=== PATIENT | female | born 1965 | race Caucasian/White ===

== ENCOUNTER 2023-09-11 04:16 | Emergency (ER) | payer OTHER, SELFPAY ==
[2023-09-11 04:24] VITALS: BP 144/71; PULSE 64; RESP 16; TEMP 36.8; O2SAT 100; BMI 38.7
--- NOTE | 2023-09-11 04:39 | XR_ITS ---
Patient: BONNIE HENDRIX Facility:?[facility] Patient ID:?[id number] Site Patient ID:?[id number]. Site :?[id number] Study:?XRay-Abdomen 2 VIEW-09/11/2023 4:54:29 AM Ordering Physician:AMIE Final Report: Indication: constipation Technique: Abdomen 3 view. Comparison: None. Findings: Bowel: Bowel pattern is normal. Mild-moderate stool burden throughout the colon. Other: No sign of free air. No suspicious calcifications. Osseous structures are unremarkable for age. Impression: Mild-moderate stool burden throughout the colon. Dictated by Artemio Menard MD @ 09/11/2023 5:53:07 AM Signed by:?Artemio Menard MD @09/11/2023 5:53:07 AM (Electronic Signature)
--- NOTE | 2023-09-11 04:44 | PC.NURSE ---
Pt to radiology.
[2023-09-11] MEDS: DOCUSATE SODIUM/BENZOCAINE 5 ML ENEMA PR (05:32)
--- NOTE | 2023-09-11 05:46 | PC.NURSE ---
Pt in restroom, put call light on. States she was able to go a little bit but still have a lot of cramping. Pt states she was able to pass a lot of gas. Pt. 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 Requesting another suppository/enema.
--- NOTE | 2023-09-11 06:13 | ED.ABDPAIN ---
HPI - Abdominal Pain General Date Seen: 09/11/23 Chief Complaint: Abdominal Pain Stated Complaint: abdominal pain Time Seen by Provider: 09/11/23 04:38 Source: patient Mode of arrival: ambulatory Limitations: no limitations History of Present Illness HPI narrative: Patient is a 58-year-old female who was seen by her PCP two days ago with abdominal pain. She was diagnosed with constipation and told to start MiraLax b.i.d.. She is on some medications that are constipating but she has never had a lot of difficulty with her bowels. No testing or imaging was done in the clinic. She has been taking MiraLax b.i.d. and had a small bowel movement on Thursday and no bowel movement yesterday. She has been up the entire night with abdominal cramping that comes in waves. No history of black or bloody stools. Related Data Home Medications Medication Instructions Recorded Confirmed fluticasone fur. 200 mcg-umeclid 1 ea inhalation DAILY 09/11/23 09/11/23 62.5 mcg-vilant 25 mcg inhalat.powder (Trelegy Ellipta) levothyroxine 50 mcg tablet 50 mcg PO DAILY 09/11/23 09/11/23 montelukast 10 mg tablet 10 mg PO QPM 09/11/23 09/11/23 olanzapine 10 mg-samidorphan 10 mg 1 tab PO DAILY 09/11/23 09/11/23 tablet (Lybalvi) Allergies Allergy/AdvReac Type Severity Reaction Status Date / Time No Known Drug Allergies Allergy Verified 09/11/23 05:58 Review of Systems Narrative Review of systems is outlined above otherwise noted to be negative. [facility] Social History Smoking Status: Never smoker Do you use any of these nicotine containing products: None Second hand tobacco smoke exposure: No How often do you have a drink containing alcohol: monthly or less How often do you have six or more drinks on one occasion: Never AUDIT-C Alcohol total score: 1 Non-prescribed substance use: denies use service: No Exam Narrative: Exam Narrative: Vitals noted. HEENT: Conjunctiva clear. Neck is supple without adenopathy, thyromegaly, carotid bruit. Lungs: Clear to auscultation in all ha. No wheezes, rales, rhonchi. Heart: Regular rate and rhythm without murmur. Abdomen: Obese, Soft and nontender. No guarding, rigidity, rebound. Bowel sounds are normal. No palpable masses. Extremities: No cyanosis or edema. Good distal pulses. Skin: No abnormalities noted of the exposed skin. Neurologic: Awake, alert, fully oriented. Neurologic exam is nonfocal. Const: Vital Signs, click to edit/add: Vital Signs - 24 hr 09/11/23 04:24 Temperature 98.3 F Pulse Rate [Pulse Oximeter] 64 Respiratory Rate 16 Blood Pressure [Ri ght Forearm] 144/71 H Pulse Oximetry 100 Oxygen Delivery Me thod Room Air Course Course ED Course: Patient seen and examined. Flat and upright views of the abdomen show significant left-sided stool with the generalized constipation throughout. No point of obstruction. No free air. She was initially given Enemeez with no result. This was followed with a pink lady enema with excellent results and a near complete relief of her abdominal pain. Vital Signs Vital signs: Initial Vital Signs Temperature 98.3 F 09/11/23 04:24 Temperature Source Temporal Artery Scan 09/11/23 04:24 Pulse Rate 64 09/11/23 04:24 Pulse Rhythm Regular 09/11/23 04:24 Respiratory Rate 16 09/11/23 04:24 Blood Pressure 144/71 H 09/11/23 04:24 Blood Pressure Mean 95 09/11/23 04:24 Blood Pressure Position Supine 09/11/23 04:24 Pulse Oximetry 100 09/11/23 04:24 Oxygen Delivery Method Room Air 09/11/23 04:24 Vital Signs Temperature 98.3 F 09/11/23 04:24 Pulse Rate 64 09/11/23 04:24 Respiratory Rate 16 09/11/23 04:24 Blood Pressure 144/71 H 09/11/23 04:24 Pulse Oximetry 100 09/11/23 04:24 Oxygen Delivery Method Room Air 09/11/23 04:24 Temperature 98.3 F 09/11/23 04:24 Pulse Rate 64 09/11/23 04:24 Respiratory Rate 16 09/11/23 04:24 Blood Pressure 144/71 H 09/11/23 04:24 Pulse Oximetry 100 09/11/23 04:24 Oxygen Delivery Method Room Air 09/11/23 04:24 Medications Administered Medications: Generic Name Dose Route Start Last Admin Trade Name Freq PRN Reason Stop Dose Admin Docusate Sodium/Benzocaine 5 ml 09/11/23 05:25 09/11/23 05:32 Docusate Sodium/Benzocaine 5 Ml Enema DC 09/11/23 05:26 5 ml ONCE ONE Administration Non-Formulary Medication 1 dose 09/11/23 06:09 09/11/23 06:20 [place] Lady Enema DC 09/11/23 06:10 1 dose ONCE ONE Administration Discharge Plan Discharge Clinical Impression: Constipation Patient Disposition: Home, Self-Care Condition: Improved Additional Instructions: Start taking Benefiber 2 tsp twice daily and an [id number] stool softener twice daily. You can continue MiraLax one capful daily. Increase your water intake and your daily fiber intake. Follow-up with your PCP if symptoms do not continue to improve. Prescriptions: No Action levothyroxine 50 mcg tablet 50 mcg PO DAILY montelukast 10 mg tablet 10 mg PO QPM Trelegy Ellipta 200-62.5-25 mcg blister with device 1 ea inhalation DAILY Lybalvi 10-10 mg tablet 1 tab PO DAILY Follow Up/Referrals: Provider,Not a Local [Primary Care Provider] - Stand Alone Forms: [employer] Info Instructions
== END 2023-09-11 06:53 | disposition home or self-care (01) ==
PROVIDERS: Emergency Provider Family Medicine
DX: K59.00 Constipation, unspecified (principal)
CPT/HCPCS: 74019; 99282; 99283; A9270